=== PATIENT | male | born 1990 | race Caucasian/White ===

== ENCOUNTER 2019-02-27 20:27 | Emergency (ER) | payer BC, OTHER ==
[~2019-02-27] VITALS: Ht 182.9 cm; Wt 91.2 kg
[~2019-02-27 20:27] MED LIST: AMOX1TAB10 PO
[2019-02-27 20:38] VITALS: BP 126/69; PULSE 65; RESP 20; Ht 182.9 cm; Wt 91.2 kg
[2019-02-27] MEDS ORDERED: RABIES VACC, HUMAN DIPLOID/PF 2.5 UNIT VIAL IM ONE (22:30)
== END 2019-02-27 23:29 | disposition home or self-care (01) ==
LOC: FTE 20:27
DX: S71.151A Open bite, right thigh, initial encounter (principal); W54.0XXA Bitten by dog, initial encounter; Y92.9 Unspecified place or not applicable; Z23 Encounter for immunization
CPT/HCPCS: 90471; 90675

== ENCOUNTER 2019-03-02 06:52 | Emergency (ER) | payer BC, OTHER ==
[~2019-03-02] VITALS: Ht 185.4 cm; Wt 89.0 kg
[2019-03-02 06:54] VITALS: BP 122/69; PULSE 69; RESP 18; Ht 185.4 cm; Wt 89.0 kg
[2019-03-02] MEDS ORDERED: RABIES VACC, HUMAN DIPLOID/PF 2.5 UNIT VIAL IM ONE (08:00)
[2019-03-02] MEDS: AMOXICILLIN/CLAV 875 MG TAB PO ONE ×2 (08:43→08:45)
== END 2019-03-02 09:24 | disposition left against medical advice (07) ==
LOC: FTE 06:52
DX: S71.152D Open bite, left thigh, subsequent encounter (principal); W54.0XXD Bitten by dog, subsequent encounter; Z23 Encounter for immunization
CPT/HCPCS: 90471; 90675

== ENCOUNTER 2019-03-03 07:31 | Emergency (ER) | payer BC, OTHER ==
[~2019-03-03] VITALS: Ht 180.3 cm; Wt 89.7 kg
[2019-03-03 07:35] VITALS: BP 120/69; PULSE 66; RESP 20; Ht 180.3 cm; Wt 89.7 kg
[2019-03-03] MEDS ORDERED: RABIES IMMUNE GLOBULIN/PF 150 UNIT/ML VIAL IM ONE (09:00)
[2019-03-03] MEDS ORDERED: RABIES IMMUNE GLOBULIN/PF 300 UNIT/ML VIAL IM ONE (09:00)
== END 2019-03-03 09:01 | disposition home or self-care (01) ==
LOC: FTE 07:31
DX: Z29.14 Encounter for prophylactic rabies immune globulin (principal)
CPT/HCPCS: 90375; 96372